=== PATIENT | male | born 1995 | race African-American/Black ===

== ENCOUNTER 2019-06-17 16:15 | Emergency (ER) | payer OTHER, SELFPAY ==
[2019-06-17 16:42] VITALS: BP 124/80; PULSE 108; RESP 18; TEMP 36.6; O2SAT 100
--- NOTE | 2019-06-17 17:36 | ED.NAVMDI ---
HPI - Nausea/Vomiting/Diarrhea General Chief complaint: Nausea/Vomiting/Diarrhea Stated complaint: nausea and weak Time Seen by Provider: 06/17/19 17:36 Source: patient, family and RN notes reviewed Mode of arrival: ambulatory Limitations: other (Developmental delay) History of Present Illness HPI Narrative: 24 male with developmental delay presents with concern for intermittent nausea and vomiting for 4 days. Mother reports one episode of vomiting daily for the last 4 days. Reports patient is more fatigued than usual. Mother reports he takes medications for schizoaffective disorder and bipolar which have recently been increased causing him to be more fatigued than usual and to drool. She is in touch with the patient's prescribing physician regarding the symptoms. She reports the patient had labs drawn on Friday that the physician reported may have indicated a viral infection but otherwise were normal MD elicited complaint: vomiting Related Data Home Medications Medication Instructions Recorded Confirmed benztropine 1 mg PO BID 06/17/19 06/17/19 clonazepam 2 mg PO BID 06/17/19 06/17/19 divalproex 250 mg PO BID 06/17/19 06/17/19 divalproex 500 mg PO BID 06/17/19 06/17/19 folic acid 1 mg PO DAILY 06/17/19 06/17/19 Allergies Allergy/AdvReac Type Severity Reaction Status Date / Time No Known Allergies Allergy Verified 06/17/19 16:54 Review of Systems Review of Systems: Narrative: CONSTITUTIONAL: Reports malaise, fatigue. Denies chills, sweats, or fever. EYES: Denies visual changes, redness, or discharge. ENT: Reports rhinorrhea, congestion. Denies sinus pain, otalgia or sore throat. CARDIOVASCULAR: Denies chest pain, palpitations, or edema. RESPIRATORY: Reports occasional cough. Denies dyspnea. GASTROINTESTINAL: Denies abdominal pain, diarrhea, bloody, or mucous stools. Reports nausea, vomiting. Reports normal bowel movement this morning GENITOURINARY: Denies dysuria or hematuria. SKIN: Denies rash or itching. MUSCULOSKELETAL: Denies back pain, joint pain, or myalgia. NEUROLOGIC: Denies numbness, weakness, or headache. PMFSH Comments At time of signature, agree with nursing past medical, surgical, social and family history. There is no relevant family history pertinent to the presenting complaint Exam Narrative: Exam Narrative: GENERAL: Well-appearing, well-nourished, and in no acute distress. HEAD: Normocephalic EYES: PERRLA, conjunctivae clear ENT: Nares clear, turbinates erythematous, clear discharge. Mucous membranes moist. TM pearly chacon with sharp light reflex bilaterally; no tragal tenderness. Oropharynx mild erythematous without lesions. Tonsils not enlarged and without exudate, no hoarseness, no trismus. Patient drooling, patient's baseline related to medication side effects NECK: Supple. No lymphadenopathy CHEST: Clear to auscultation, breath sounds equal. No wheezing, rhonchi, rales, or stridor. No respiratory distress, speaks in full sentences. HEART: Regular rate and rhythm. No murmur heard. Normal peripheral pulses. Abdomen: Soft, flat, no palpable masses, mild suprapubic tenderness on deep palpation SKIN: Warm, dry, no rash. NEURO: Alert and oriented x3. PSYCH: Normal mood and affect Course Course Emergency Course: Discussed with patient and his mother/caregiver limited diagnostic availability at the [facility]. Discussed option of transfer to the emergency department for further evaluation of vomiting. Mother/caregiver chooses at this time to not seek further evaluation at the emergency department. She understands reasons to go the emergency department if symptoms worsen or do not improve Patient and mother is aware of diagnosis, understands and agrees to treatment plan. Anticipatory guidance given. Patient and mother agrees to follow-up as directed and is aware of reasons to seek care at the emergency department. Portions of this record may have been created with voice recognition software [employer]
== END 2019-06-17 18:43 | disposition home or self-care (01) ==
PROVIDERS: Emergency Provider Nurse Practitioner
DX: R11.2 Nausea with vomiting, unspecified (principal); F41.0 Panic disorder [episodic paroxysmal anxiety]
CPT/HCPCS: 81003; 87081; 87086; 87088; 87804; 87880; 99213; G0463

== ENCOUNTER 2019-06-19 16:30 | Emergency (ER) | payer OTHER, SELFPAY ==
--- NOTE | ~2019-06-19 | XR_ITS ---
EXAMINATION: XR chest 2V DATE: 06/19/2019 17:21 INDICATION: Transient alteration of awareness TECHNIQUE: frontal and lateral views of the chest were obtained. COMPARISON: None FINDINGS: Subtle airspace opacity at the right midlung zone on the frontal projection without evident correlate on the lateral projection. No other airspace opacities, pulmonary edema, pleural effusion or pneumot horax. The cardiomediastinal silhouette is normal. Minimal to mild anterior wedging of a few lower th oracic vertebral bodies, likely T7-T9. IMPRESSION: 1. Subtle airspace opacity in the right midlung zone evident only on the frontal projection. Differen tial would include due to superimposition of vascular and rib shadows, atelectasis or pneumonia. Reviewed, dictated and finalized at location A. CARE FACILITATOR IMPRESSION: 1. Subtle airspace opacity in the right midlung zone evident only on the fronta l projection. Differential would include due to superimposition of vascular and rib shadows, atelectasis or pneumonia.
[2019-06-19 16:36] VITALS: BP 136/102; PULSE 110; RESP 20; TEMP 36.4; O2SAT 100
--- NOTE | 2019-06-19 16:40 | ED.GENADULT ---
HPI - General Adult General Chief complaint: Unspecified Stated complaint: not feeling well Time Seen by Provider: 06/19/19 16:32 Source: patient Mode of arrival: ambulatory Limitations: no limitations History of Present Illness HPI narrative: Patient is a 24-year-old male who presents to emergency department for evaluation of body ache congestion is been present for the last week patient was seen in urgent care had unremarkable work-up and was discharged home. . Patient is continued to be sleeping and complaining of congestion had had a couple episodes of emesis but does not have one in the last couple of days family has concern for dehydration patient's only complaint is congestion. Denies any pain Related Data Home Medications Medication Instructions Recorded Confirmed benztropine 1 mg PO BID 06/17/19 06/17/19 clonazepam 2 mg PO BID 06/17/19 06/17/19 divalproex 250 mg PO BID 06/17/19 06/17/19 divalproex 500 mg PO BID 06/17/19 06/17/19 folic acid 1 mg PO DAILY 06/17/19 06/17/19 Allergies Allergy/AdvReac Type Severity Reaction Status Date / Time No Known Allergies Allergy Verified 06/17/19 16:54 Review of Systems Review of Systems: All systems reviewed & are unremarkable except as noted in HPI and below PMFSH Past Medical History Medical History (Updated 06/19/19 @ 18:43 by Buddy Devine PA-C) Bipolar disorder Exam Narrative: Exam Narrative: GENERAL: Well-appearing, well-nourished, and in no acute distress. HEAD: Normocephalic, atraumatic. EYES: PERRLA and EOMI. ENT: Nares clear, no rhinorrhea or epistaxis. Mucous membranes moist. Oropharynx without tonsillar hypertrophy exudate or other lesions. Bilateral TMs pearly chacon nonbulging with partial cerumen impaction bilaterally NECK: Supple. No adenopathy or masses. CHEST: Clear to auscultation. No respiratory distress. No wheezes rales or rhonchi HEART: Regular rate and rhythm. No murmur heard. Normal peripheral pulses. ABDOMEN: Soft, nontender, nondistended. EXTREMITIES: Normal range of motion. No edema. SKIN: Warm, dry, no rash. NEURO: No focal deficits. Alert and oriented person and reason for being in the emergency department. Normal speech PSYCH: Normal mood and affect. Course Course Emergency Course: Patient in the room in no distress no high risk changes in the blood work possible pneumonia seen on chest x-ray patient nontoxic-appearing is noted afebrile felt appropriate for outpatient reevaluation agreeing to follow-up on an outpatient basis provided with reasons to return Medical Decision Making MDM Narrative Medical decision making narrative: Patient in the room in no distress aware of case findings treatment plan and diagnosis agreeing to follow-up as directed or to return if symptoms worsen or concerns Discharge Plan Discharge Clinical Impression: Pneumonia Patient Disposition: Home, Self-Care Condition: Stable Instructions: Antibiotic Form, Bacterial Pneumonia (DC) Additional Instructions: Follow up with your primary care doctor in 5-7 days for re-evaluation. Go to ER for worsening pain, vision changes, nausea/vomiting, fever/chills, weakness, chest pain, shortness of breath, numbness/tingling, slurred speech, difficulty walking, change in mental status etc. or any other concerns. Take any prescribed medications as directed. Prescriptions: New azithromycin [Zithromax Z-Shant] 250 mg tablet See Rx Instructions .ROUTE .COMPLEX Qty: 6 RF: 0 No Action clonazepam 2 mg Tablet 2 mg PO BID RF: 0 divalproex 500 mg Tablet Extended Release 24 Hr 500 mg PO BID RF: 0 divalproex 250 mg Tablet Extended Release 24 Hr 250 mg PO BID RF: 0 benztropine 1 mg Tablet 1 mg PO BID RF: 0 folic acid 1 mg Tablet 1 mg PO DAILY RF: 0 ondansetron 4 mg tablet,disintegrating 4 mg PO Q8H PRN (Reason: nausea and vomiting) Qty: 10 RF: 0 Follow-up/Referrals: UNKNOWN,DOCTOR [Primary Care Pro
[2019-06-19] MEDS: LACTATED RINGERS 1,000 ML 999 ML IV CONT (16:45)
[2019-06-19 17:19] LABS: Basophils Percent Auto 0.6 % (0.2-1.2); Eosinophils Absolute Auto 0.1 K/mm3 (0-0.3); Eosinophils Percent Auto 0.9 % (0-4.4); Hematocrit 40.8 % (42.0-52.0); Immature Granulocyte Absolute 0.04 K/mm3 (0.00-0.031); Immature Granulocyte Percent A 0.6 % (0-0.5); Lymphocytes Absolute Auto 1.49 K/mm3 (0.9-3.2); Lymphocytes Percent Auto 22.3 % (18.3-44.2); Mean Corpuscular HGB Conc 31.9 g/dl (32-36); Mean Corpuscular Hemoglobin 31.6 pg (26-34); Mean Platelet Volume 10.7 fl (7.4-10.4); Monocytes Absolute Auto 0.7 K/mm3 (0.1-0.6); Monocytes Percent Auto 9.7 % (2.6-8.5); Neutrophils Absolute Auto 4.4 K/mm3 (1.3-6.7); Neutrophils Percent Auto 65.9 % (45.5-73.1); Platelet Count Result 192 k/mm3 (150-375); Red Blood Count 4.12 M/mm3 (4.6-6.20); Red Cell Distribution Width 13.5 % (11.5-14.5); White Blood Count 6.7 K/mm3 (4.5-10.0)
[2019-06-19 17:22] LABS: Lactic Acid Reflex 1.9 mmol/L (0.7-2.1)
[2019-06-19 17:26] LABS: Alanine Aminotransferase 12 U/L (4-50); Albumin Level 4.1 g/dL (3.5-5.1); Alkaline Phosphatase 75 U/L (38-126); Aspartate Amino Transferase 16 U/L (17-59); Bilirubin,Total 0.2 mg/dL (0.2-1.3); Blood Urea Nitrogen 12 mg/dL (9-20); CRP 1.5 mg/dL (<1.0); Calcium 9.4 mg/dL (8.4-10.2); Carbon Dioxide 23 mmol/L (22-30); Chloride 107 mmol/L (98-107); Estimated CRCL calculation 110 ml/min; Estimated Glomerular Filt Rate > 60; Glucose 124 mg/dL (75-110); Potassium 4.1 mmol/L (3.4-5.0); Sodium 144 mmol/L (137-145)
[2019-06-19 18:00] LABS: Prothrombin Time 13.3 Seconds (11.1-14.7)
[2019-06-19 18:21] LABS: Add Urine Microscopic? YES; Appearance Urine Clear (Clear); Bilirubin Urine Negative (Negative); Blood Urine Negative (Negative); Color Urine Yellow (Yellow); Glucose Urine UA Negative (Negative); Ketones Urine Negative (Negative); Leukocyte Esterase Ur Negative LEU/UL (Negative); Mucus Urine Few /lpf; Nitrate Urine Negative (Negative); Protein Urine 1+ mg/dL (Negative); Specific Grav Ur 1.026 (1.001-1.035); WBC Urine 0-3 /hpf
[2019-06-19 18:36] VITALS: BP 134/98; PULSE 100; RESP 17; O2SAT 100
== END 2019-06-19 19:03 | disposition home or self-care (01) ==
PROVIDERS: Emergency Medicine Emergency Medical Services; Emergency Provider Emergency Medicine
DX: J18.9 Pneumonia, unspecified organism (principal); F31.9 Bipolar disorder, unspecified
CPT/HCPCS: 36415; 71046; 80053; 81001; 83605; 85025; 85610; 85730; 86140; 87040; 87081; 87804; 87880; 96360; 99283; J7120

== ENCOUNTER 2019-06-23 17:40 | Emergency (ER) | payer OTHER, SELFPAY ==
[2019-06-23 18:50] VITALS: BP 147/93; PULSE 122; RESP 20; TEMP 36.7; O2SAT 100
--- NOTE | 2019-06-23 19:44 | ED.GENADULT ---
HPI - General Adult General Chief complaint: Unspecified Stated complaint: weakness Time Seen by Provider: 06/23/19 19:44 Source: patient Mode of arrival: ambulatory Limitations: no limitations History of Present Illness HPI narrative: 24-year-old male patient presents to the [facility] care accompanied by his mother for a follow-up. Mother states that he was seen here last and they did do a urine sample but they never called him with the culture results. Mother states that a few days later they ended up in the ER and he was diagnosed with pneumonia. She states that he just finished antibiotics today. Patient states he is overall feeling better denies any chest pain, shortness of breath, fevers. Mother states last time he vomited was on Friday. Mother states that they are from [place] and not able to follow-up with her primary doctor at this time until they go home. Related Data Home Medications Medication Instructions Recorded Confirmed benztropine 1 mg PO BID 06/17/19 06/23/19 clonazepam 2 mg PO BID 06/17/19 06/23/19 divalproex 250 mg PO BID 06/17/19 06/23/19 divalproex 500 mg PO BID 06/17/19 06/23/19 folic acid 1 mg PO DAILY 06/17/19 06/23/19 Allergies Allergy/AdvReac Type Severity Reaction Status Date / Time No Known Allergies Allergy Verified 06/23/19 19:06 Review of Systems Review of Systems: Narrative: CONSTITUTIONAL: Denies fever, chills, or sweats. EYES: Denies visual changes, redness, or discharge. ENT: Denies rhinorrhea, congestion, sore throat, or otalgia. CARDIOVASCULAR: Denies chest pain, palpitations, or edema. RESPIRATORY: Denies cough or dyspnea. GASTROINTESTINAL: Denies abdominal pain, nausea, vomiting, or diarrhea. GENITOURINARY: Denies dysuria or hematuria. SKIN: Denies rash or itching. MUSCULOSKELETAL: Denies back pain, joint pain, or myalgia. NEUROLOGIC: Denies headache, numbness, or weakness. PSYCHIATRIC: Denies anxiety or depression. [facility] Past Medical History Medical History Bipolar disorder Comments At the time of my signature I agree with nursing past medical history, surgical, social, and family history. There is no relevant family history pertinent to the presenting complaint. Exam Narrative: Exam Narrative: GENERAL: Well-appearing, well-nourished, and in no acute distress. HEAD: Normocephalic, atraumatic. EYES: PERRLA and EOMI. ENT: Nares clear, no rhinorrhea or epistaxis. Mucous membranes moist. Posterior pharynx with no erythema, tonsillar margin, exudates or lesions present. Bilateral TMs are clear with no erythema or foreign bodies in the canal. NECK: Supple. No lymphadenopathy CHEST: Clear to auscultation. No respiratory distress. HEART: Regular rate and rhythm. No murmur heard. Normal peripheral pulses. ABDOMEN: Soft, nontender, nondistended, normal active bowel sounds. EXTREMITIES: Normal range of motion. No edema. SKIN: Warm, dry, no rash. NEURO: No focal deficits. Alert and oriented x3. Course Vital Signs Vital signs: Vital Signs Temperature 36.7 C 06/23/19 18:50 Pulse Rate 122 H 06/23/19 18:50 Respiratory Rate 20 06/23/19 18:50 Blood Pressure 147/93 H 06/23/19 18:50 Pulse Oximetry 100 06/23/19 18:50 Temperature 36.7 C 06/23/19 18:50 Pulse Rate 122 H 06/23/19 18:50 Respiratory Rate 20 06/23/19 18:50 Blood Pressure 147/93 H 06/23/19 18:50 Pulse Oximetry 100 06/23/19 18:50 Vital signs reviewed. Medical Decision Making Differential Diagnosis Differential Diagnosis: Differential diagnosis: Allergic rhinitis, chronic sinusitis, tonsillitis, acute sinusitis, infectious mononucleosis, seasonal influenza, pertussis, diphtheria, meningococcal disease, viral syndrome, viral bronchitis, RSV. Discussed with them that overall patient's lungs are nice and clear today and he does not seem to be having any complaints and therefore he can follow-up with his doctor when he gets back to
== END 2019-06-23 19:54 | disposition home or self-care (01) ==
PROVIDERS: Emergency Provider Nurse Practitioner Family
DX: Z09 Encounter for follow-up examination after completed treatment for conditions other than malignant neoplasm (principal)
CPT/HCPCS: 99211; G0463